=== PATIENT | male | born 1925 | race Caucasian/White ===

== ENCOUNTER 2017-09-30 08:25 | Outpatient (CLI) | payer MEDICARE ==
[2017-09-30] VITALS (7 sets, daily range): BP systolic 135–172; BP diastolic 67–81; PULSE 62–78
[~2017-09-30] VITALS: Ht 175.3 cm; Wt 92.1 kg
[~2017-09-30 08:25] MED LIST: COREG 6.256.25 MG/TA PO; DIOVAN320 MG PO; NORVASC 5MG5 MG/TAB PO; TOPAMAX 25MG25 M1 PO; TOPAMAX50 MG PO
[2017-09-30 11:39] LABS: CEREBROSPINAL TUBE #4; CSF APPEARANCE CLEAR; CSF COLOR COLORLESS
[2017-09-30 11:40] LABS: CSF POLYMORPHONUCLEAR 9 % (0-6)
[2017-10-05 13:19] LABS: ALBUMIN CSF 36.9 mg/dL (<=27.0); CSF IGG/ALBUMIN 0.08 (<=0.21); CSF,IGG 2.8 mg/dL (<=8.1)
[2017-10-05 13:28] LABS: CSF SYNTHESIS RATE 0.89 mg/24 h (<=12); CSF-IGG INDEX 0.53 (<=0.85); IGG/ALBUMIN SERUM 0.15 (<=0.40)
== END 2017-09-30 12:00 | disposition home or self-care (01) ==
LOC: COL.RAD 08:25
PROVIDERS: Psychiatry & Neurology Neurology
DX: R51 Headache (principal)

== ENCOUNTER → 2017-10-01 | Outpatient (CLI) | payer MEDICARE | LOC: COL.LAB 13:30 | DX: Z01.89 Encounter for other specified special examinations (principal) ==